=== PATIENT | female | born 1930 ===

== ENCOUNTER 2017-10-05 12:09 | Emergency (ER) | payer OTHER ==
[~2017-10-05] VITALS: Ht 154.9 cm; Wt 59.0 kg
[2017-10-05] MEDS ORDERED: ISORDIL10 MG (12:22)
[2017-10-05] MEDS ORDERED: NEURONTIN300 MG (12:23)
[2017-10-05] MEDS ORDERED: HUMALOG100 UNIT/1 (12:24)
== END 2017-10-05 14:16 | disposition home or self-care (01) ==
LOC: ER 12:09
DX: R21 Rash and other nonspecific skin eruption (principal)